=== PATIENT | male | born 1950 | race Caucasian/White ===

== ENCOUNTER 2018-06-18 08:34 | Day surgery (SDC) | payer OTHER ==
[2018-06-15 16:15] VITALS: BMI 37.3
[2018-06-18] MEDS ORDERED: LIDOCAINE HCL/PF 2% SDV 5ML VIAL ONE (09:50)
[2018-06-18] MEDS ORDERED: PROPOFOL 20 ML ONE ×2 (09:51)
[2018-06-18] MEDS ORDERED: ONDANSETRON 4 MG/2 ML VIAL IVPUSH PRN (12:01)
[2018-06-18] MEDS ORDERED: oxyCODONE HCL 5 MG TABLET PO PRN (12:01)
[2018-06-18] MEDS ORDERED: LACTATED RINGERS SOLUTION 1,000 ML IV SCH (12:15)
--- NOTE | 2018-06-18 12:30 | OP ---
Operative Note - Note: Operative Date: 06/18/18 Pre-Operative Diagnosis: bph Operation: TURP/TUVP Findings: 3+ obstructive prostate Post-Operative Diagnosis: Same as Pre-op Surgeon: Babak Mak Anesthesia: General Specimens Removed: prostatic chips Estimated Blood Loss (mls): 50 Operative Report Dictated: Yes
[2018-06-18] MEDS ORDERED: ACETAMINOPHEN INJECTION 100 ML IVPB ONE (12:43)
[2018-06-18] MEDS ORDERED: ACETAMINOPHEN 1000 MG/100 ML VIAL (NON FORMULARY) IVPB ONE ×2 (12:45→13:46)
[2018-06-18 14:46] VITALS: TEMP 97.7
[2018-06-18 17:08] VITALS: BP 140/73; PULSE 76
--- NOTE | 2018-06-18 20:44 | OP ---
DATE OF OPERATION: 06/18/2018 PREOPERATIVE DIAGNOSIS: Benign prostatic hypertrophy. POSTOPERATIVE DIAGNOSIS: Benign prostatic hypertrophy. PROCEDURE: Transurethral resection of the prostate and transurethral vaporization of the prostate utilizing bipolar system. ATTENDING: Babak Dill MD ANESTHESIA: General. DESCRIPTION OF PROCEDURE: Patient was brought into the operating room, placed in supine position on the operating room table. General anesthesia was administered. The patient was then placed in dorsal lithotomy position and prepped and draped in the usual sterile manner. Cystoscopy was performed. A 3+ obstructive prostate was noted. A 1-2+ bladder trabeculation was noted. No evidence of neoplasm within the bladder was noted. Resection of the prostate was initially performed utilizing the loop element of the [employer] system. Resection of the prostate was performed. The margins of the resection were the verumontanum distally and the bladder neck proximally. The resection was performed in a 360-degree fashion. The bulk of the prostate was resected. All prostatic chips were evacuated from the bladder utilizing the [employer] evacuator. Excellent hemostasis was obtained. Once the prostate had been adequately reduced in size, the button element of the Plasma[employer] bipolar system was utilized. Utilizing the button element, vaporization of the prostate was performed. The margins of the vaporization were the bladder neck proximally and the verumontanum distally. The depth of the vaporization was to the pseudocapsule of the prostate. This was performed in a 360-degree fashion. Excellent hemostasis was obtained. The bladder was investigated. No evidence of perforation was noted. No residual prostatic chips were noted in the bladder. Patient tolerated the procedure very well. A Mata catheter was placed with a 30-mL balloon. This was placed on light traction. The catheter was placed to straight drainage. No complications were noted. The disposition was to recovery room. Shane [id number]
--- NOTE | 2018-06-19 13:58 | PATH ---
Surgical Pathology Report Patient Name: JULIO GOODWIN [facility]. Rec. #: [id number] /Age/Gender: 1950 (Age: 67) / M Account: [id number] Location: [facility] Taken: 06/18/2018 Received: 06/18/2018 Reported: 06/19/2018 Physicians: Babak Mak Specimen(s) Received PROSTATE CHIPS Clinical History BPH Final Diagnosis PROSTATE, TRANSURETHRAL RESECTION AND VAPORIZATION OF PROSTATE: BENIGN PROSTATIC TISSUE WITH FOCAL CHRONIC INFLAMMATION, CYSTIC CHANGES, GLANDULAR AND STROMAL HYPERPLASIA. Electronically Signed Gay Mix M.D. Gross Description Received in formalin labeled "prostate tissue," is a 25 g, 13.5 x 9.5 x 0.7 cm aggregate of rawls, firm to rubbery portions of tissue, consistent with prostate chips. Machinist Brake sections are submitted in 12 cassettes. /06/18/2018 saudi/06/18/2018
== END 2018-06-18 17:09 | disposition home or self-care (01) ==
LOC: JASU-SURG 08:34
PROVIDERS: ATTEND Urology
PROC: 0VT08ZZ Resection of Prostate, Via Natural or Artificial Opening Endoscopic (ICD-10-PCS; principal; 2018-06-18 10:00)
DX: N40.1 Benign prostatic hyperplasia with lower urinary tract symptoms (principal); N13.8 Other obstructive and reflux uropathy; E11.9 Type 2 diabetes mellitus without complications; I10 Essential (primary) hypertension; E66.01 Morbid (severe) obesity due to excess calories
CPT/HCPCS: 82962; 88305-TC; 94760; J0131

== ENCOUNTER 2024-05-29 10:58 | Inpatient (IN) | payer OTHER ==
[2024-05-29 11:18] VITALS: RESP 18
[2024-05-29 13:03] LABS: EPI CELLS 1 /uL (0-25.1); HYALINE CASTS 0 /uL (0-3.1); URINE APPEARANCE CLEAR; URINE BACTERIA 1 /uL (0-1359); URINE BILIRUBIN NEGATIVE (NEGATIVE); URINE COLOR YELLOW; URINE GLUCOSE (UA) 3+ (NEGATIVE); URINE KETONE NEGATIVE (NEGATIVE); URINE LEUK ESTERASE NEGATIVE (NEGATIVE); URINE NITRITE NEGATIVE (NEGATIVE); URINE PROTEIN 1+ (NEGATIVE); URINE RBC 9 /uL (0-23.9); URINE UROBILINOGEN 0.2 mg/dL (0.2-1.0); URINE WBC 11 /uL (0-25.8)
[2024-05-29 13:06] LABS: HEMATOCRIT 35.1 % (35.4-49); HEMOGLOBIN 11.5 GM/dL (11.7-16.9); INR 0.96 (0.83-1.09); MCH 33.8 pg (25.7-33.7); MCHC 32.8 g/dl (32.0-35.9); MEAN CELL VOLUME 103.1 fl (80-96); MEAN PLT VOLUME 7.8 fl (7.5-11.1); PLATELET COUNT 178 10^3/uL (134-434); PROTHROMBIN TIME (PATIENT) 11.1 SEC (9.7-13.0); RBC 3.41 M/mm3 (4.00-5.60); RDW 16.8 % (11.9-15.9)
[2024-05-29 13:14] LABS: WHITE BLOOD COUNT 51.6 K/mm3 (4.0-10.0)
[2024-05-29 13:27] LABS: POTASSIUM 4.7 mmol/L (3.5-5.1)
[2024-05-29 13:29] LABS: ALBUMIN 4.4 g/dl (3.4-5.0); BLOOD UREA NITROGEN 28.4 mg/dL (7-18); CALCIUM 9.1 mg/dL (8.5-10.1); MAGNESIUM 2.2 mg/dL (1.8-2.4)
[2024-05-29 13:33] LABS: CREATININE 1.7 mg/dL (0.55-1.3)
[2024-05-29 13:34] LABS: BILIRUBIN,TOTAL 0.6 mg/dL (0.2-1)
[2024-05-29] MEDS: SODIUM CHLORIDE 500 ML IV STA (13:51)
[2024-05-29 14:14] LABS: ANISOCYTOSIS 1+; MACROCYTOSIS 1+
[2024-05-29] MEDS ORDERED: ACETAMINOPHEN 325 MG TABLET (FP) PO PRN (15:27)
[2024-05-29 16:15] VITALS: BMI 36.8
[2024-05-29] MEDS: INSULIN ASPART SLIDING SCALE (NOVOLOG) 1 VIAL SQ SCH (17:20)
[2024-05-29] MEDS: sitaGLIPtin PHOSPHATE 50 MG TABLET PO SCH (17:22)
[2024-05-29] MEDS: PIPERACILLIN/TAZOB 3.375 GM 3.375 GM in DEXTROSE 5%-WATER - 50 ML IVPB SCH (17:22)
[2024-05-29] MEDS: ATORVASTATIN CA 10 MG TABLET (FP) PO SCH (21:16)
[2024-05-29] MEDS: HEPARIN NA (PORCINE) 5,000 UNITS/ML 1ML VIAL SQ SCH (21:16)
[2024-05-30] MEDS: GLIMEPIRIDE 4 MG TABLET PO SCH (06:25)
[2024-05-30] MEDS ORDERED: INSULIN (LEVEMIR) 100 UNITS/ML UNITS SQ ONE (06:35)
[2024-05-30] MEDS: TAMSULOSIN HCL 0.4 MG CAP PO SCH (08:01)
[2024-05-30 08:55] LABS: HEMATOCRIT 35.9 % (35.4-49); MCH 34.4 pg (25.7-33.7); MCHC 33.4 g/dl (32.0-35.9); MEAN PLT VOLUME 7.8 fl (7.5-11.1); PLATELET COUNT 165 10^3/uL (134-434); RBC 3.48 M/mm3 (4.00-5.60); RDW 16.3 % (11.9-15.9)
[2024-05-30 09:09] LABS: WHITE BLOOD COUNT 61.4 K/mm3 (4.0-10.0)
[2024-05-30] MEDS: amLODIPine BESYLATE 10 MG TABLET (FP) PO SCH (09:13)
[2024-05-30] MEDS: LOSARTAN POTASSIUM 50 MG TABLET PO SCH (09:13)
[2024-05-30 09:19] LABS: POTASSIUM 4.6 mmol/L (3.5-5.1)
[2024-05-30 09:28] LABS: CALCIUM 9.2 mg/dL (8.5-10.1)
[2024-05-30 09:29] LABS: ALBUMIN 4.2 g/dl (3.4-5.0); BLOOD UREA NITROGEN 29.1 mg/dL (7-18)
[2024-05-30 09:32] LABS: CREATININE 1.7 mg/dL (0.55-1.3)
[2024-05-30 09:33] LABS: BILIRUBIN,TOTAL 0.6 mg/dL (0.2-1)
[2024-05-31] MEDS ORDERED: INSULIN (LEVEMIR) 100 UNITS/ML UNITS SQ ONE (07:26)
[2024-05-31 09:03] LABS: POTASSIUM 4.2 mmol/L (3.5-5.1)
[2024-05-31] MEDS: LOSARTAN POTASSIUM 50 MG TABLET PO SCH (09:03)
[2024-05-31 09:06] LABS: CALCIUM 8.8 mg/dL (8.5-10.1)
[2024-05-31 09:07] LABS: BLOOD UREA NITROGEN 29.3 mg/dL (7-18)
[2024-05-31 09:10] LABS: CREATININE 1.9 mg/dL (0.55-1.3)
[2024-05-31 09:11] LABS: BILIRUBIN,TOTAL 0.6 mg/dL (0.2-1); TOT PROT 6.8 g/dl (6.4-8.2)
[2024-05-31] MEDS: SODIUM CHLORIDE 0.45% 1,000 ML IV SCH (12:17)
[2024-05-31] MEDS ORDERED: CEFTRIAXONE 1 GM in DEXTROSE 5%-WATER - 50 ML IVPB SCH (14:30)
[2024-06-01 08:29] VITALS: BP 125/72; PULSE 72; TEMP 98.1
[2024-06-01 08:32] LABS: CALCIUM 8.7 mg/dL (8.5-10.1)
[2024-06-01 08:33] LABS: BLOOD UREA NITROGEN 27.5 mg/dL (7-18)
[2024-06-01 08:35] LABS: CREATININE 1.7 mg/dL (0.55-1.3)
[2024-06-01 08:37] LABS: BILIRUBIN,TOTAL 0.4 mg/dL (0.2-1); TOT PROT 6.9 g/dl (6.4-8.2)
== END 2024-06-01 12:47 | disposition home or self-care (01) | DRG 842 ==
LOC: JER 10:58 → JERBED 14:23 → J6S 15:38
PROVIDERS: ADMIT Family Medicine; ATTEND Family Medicine
DX: C91.10 Chronic lymphocytic leukemia of B-cell type not having achieved remission (principal); R59.0 Localized enlarged lymph nodes; D72.829 Elevated white blood cell count, unspecified; E11.9 Type 2 diabetes mellitus without complications; I10 Essential (primary) hypertension; N40.0 Benign prostatic hyperplasia without lower urinary tract symptoms; E66.9 Obesity, unspecified; Z68.36 Body mass index [BMI] 36.0-36.9, adult
CPT/HCPCS: 36415; 70490-TC; 71046-TC-FY; 71250-TC; 74176-TC; 76775-TC; 80053; 81003; 82150; 82962; 83036; 83615; 83735; 84443; 85025; 85027; 85610; 87040; 87086; 88300-TC; 93005; 93010; 99285-25; J1644

== ENCOUNTER 2025-01-01 15:39 | Inpatient (IN) | payer OTHER ==
[2025-01-01 17:52] LABS: URINE APPEARANCE CLEAR; URINE BILIRUBIN NEGATIVE (NEGATIVE); URINE COLOR YELLOW; URINE GLUCOSE (UA) NEGATIVE (NEGATIVE); URINE KETONE NEGATIVE (NEGATIVE); URINE LEUK ESTERASE NEGATIVE (NEGATIVE); URINE NITRITE NEGATIVE (NEGATIVE); URINE PROTEIN TRACE (NEGATIVE); URINE UROBILINOGEN 0.2 mg/dL (0.2-1.0)
[2025-01-01 17:54] LABS: EOS % 0.1 % (0-4.5); HEMATOCRIT 13.4 % (35.4-49); LYMPH % 97.1 % (8-40); MCH 32.6 pg (25.7-33.7); MCHC 29.2 g/dl (32.0-35.9); MEAN CELL VOLUME 111.7 fl (80-96); MEAN PLT VOLUME 8.6 fl (7.5-11.1); MONO % 1.7 % (3.8-10.2); NEUT % 1.1 % (42.8-82.8); PLATELET COUNT 91 10^3/uL (134-434); RDW 18.2 % (11.9-15.9)
[2025-01-01 18:02] LABS: HEMOGLOBIN 3.9 GM/dL (11.7-16.9); WHITE BLOOD COUNT 286.9 K/mm3 (4.0-10.0)
[2025-01-01 18:49] LABS: ANISOCYTOSIS 3+; MACROCYTOSIS 0; TARGET CELLS 1+
[2025-01-01 19:26] LABS: CHLORIDE 107 mmol/L (98-107); POTASSIUM 4.8 mmol/L (3.5-5.1); SODIUM 138 mmol/L (136-145)
[2025-01-01 19:28] LABS: ALBUMIN 3.7 g/dl (3.4-5.0); ANION GAP 13 mmol/L (4-13); CALCIUM 8.4 mg/dL (8.5-10.1); CO2 19 mmol/L (21-32); GLUCOSE,RANDOM 120 mg/dL (74-106); MAGNESIUM 3.5 mg/dL (1.8-2.4)
[2025-01-01 19:31] LABS: CREATININE 4.8 mg/dL (0.55-1.3); SGOT/AST 16 U/L (15-37); SGPT/ALT 20 U/L (13-61)
[2025-01-01 19:33] LABS: BILIRUBIN,TOTAL 0.5 mg/dL (0.2-1); TOT PROT 6.3 g/dl (6.4-8.2)
[2025-01-01 19:34] LABS: ALK PHOS 156 U/L (45-117); BLOOD UREA NITROGEN 125.2 mg/dL (7-18)
[2025-01-01] MEDS ORDERED: DOCUSATE SODIUM 100 MG CAPSULE (FP) PO PRN (21:59)
[2025-01-01] MEDS ORDERED: ACETAMINOPHEN 325 MG TABLET (FP) PO PRN (21:59)
[2025-01-01 22:27] LABS: RETICULOCYTES 0.75 % (0.5-1.5)
[2025-01-02 08:17] LABS: INR 1.11 (0.83-1.09); PROTHROMBIN TIME (PATIENT) 12.1 SEC (9.7-13.0)
[2025-01-02 08:20] LABS: ACTIVATED PTT 24.1 SECONDS (25.2-36.5); HEMATOCRIT 21.2 % (35.4-49); MCHC 32.5 g/dl (32.0-35.9); MEAN CELL VOLUME 98.5 fl (80-96); MEAN PLT VOLUME 8.6 fl (7.5-11.1); PLATELET COUNT 76 10^3/uL (134-434); RBC 2.16 M/mm3 (4.00-5.60); RDW 17.9 % (11.9-15.9)
[2025-01-02 08:38] LABS: CHLORIDE 109 mmol/L (98-107); POTASSIUM 4.6 mmol/L (3.5-5.1); SODIUM 141 mmol/L (136-145)
[2025-01-02 08:40] LABS: ANION GAP 10 mmol/L (4-13); CALCIUM 8.4 mg/dL (8.5-10.1); CO2 22 mmol/L (21-32); GLUCOSE,RANDOM 122 mg/dL (74-106); HEMOGLOBIN 6.9 GM/dL (11.7-16.9); MAGNESIUM 3.8 mg/dL (1.8-2.4); WHITE BLOOD COUNT 248.6 K/mm3 (4.0-10.0)
[2025-01-02 08:43] LABS: CREATININE 4.4 mg/dL (0.55-1.3)
[2025-01-02 08:44] LABS: PHOSPHOROUS 7.2 mg/dL (2.5-4.9)
[2025-01-02 08:47] LABS: BLOOD UREA NITROGEN 120.7 mg/dL (7-18)
[2025-01-02] MEDS: PIPERACILLIN/TAZOB 3.375 GM 50 ML IVPB SCH ×2 (09:37→22:17)
[2025-01-02] MEDS ORDERED: PIPERACILLIN/TAZOB 3.375 GM 3.375 GM/50 ML BAG IVPB ONE (09:37)
[2025-01-02 10:06] LABS: ERYTHROCYTE SEDIMENTATION RATE 90 mm/hr (0-20)
[2025-01-02] MEDS: SODIUM CHLORIDE 0.45% 1,000 ML IV SCH (18:00)
[2025-01-02] MEDS ORDERED: FENTANYL CITRATE/PF 50 MCG/ML VIAL ONE (20:53)
[2025-01-02] MEDS: POLYETHYLENE GLYCOL (HEALTHYLAX) 3350 17 GM PACKET PO SCH (21:56)
[2025-01-02 22:29] LABS: HEMATOCRIT 27.9 % (35.4-49); HEMOGLOBIN 9.5 GM/dL (11.7-16.9); MCH 31.9 pg (25.7-33.7); MCHC 33.9 g/dl (32.0-35.9); MEAN PLT VOLUME 8.2 fl (7.5-11.1); PLATELET COUNT 63 10^3/uL (134-434); RBC 2.97 M/mm3 (4.00-5.60); RDW 18.3 % (11.9-15.9)
[2025-01-02 22:48] LABS: WHITE BLOOD COUNT 227.4 K/mm3 (4.0-10.0)
[2025-01-03 07:49] LABS: HEMATOCRIT 26.5 % (35.4-49); HEMOGLOBIN 8.9 GM/dL (11.7-16.9); MCH 31.7 pg (25.7-33.7); MCHC 33.6 g/dl (32.0-35.9); MEAN CELL VOLUME 94.3 fl (80-96); MEAN PLT VOLUME 8.6 fl (7.5-11.1); PLATELET COUNT 88 10^3/uL (134-434); RBC 2.81 M/mm3 (4.00-5.60)
[2025-01-03 07:55] LABS: WHITE BLOOD COUNT 252.3 K/mm3 (4.0-10.0)
[2025-01-03 08:10] LABS: POTASSIUM 4.2 mmol/L (3.5-5.1)
[2025-01-03 08:13] LABS: ALBUMIN 3.5 g/dl (3.4-5.0); BLOOD UREA NITROGEN 99.8 mg/dL (7-18); CALCIUM 8.4 mg/dL (8.5-10.1)
[2025-01-03 08:17] LABS: CREATININE 3.6 mg/dL (0.55-1.3)
[2025-01-03 08:19] LABS: TOT PROT 6.1 g/dl (6.4-8.2)
[2025-01-03 09:38] LABS: GAMMA GLUTAMYL TRANSPEPTIDASE 16 U/L (5-85)
[2025-01-03] MEDS: ONDANSETRON 4 MG/2 ML VIAL IVPUSH ONE (19:29)
[2025-01-04 09:31] LABS: HEMATOCRIT 26.5 % (35.4-49); HEMOGLOBIN 8.8 GM/dL (11.7-16.9); MCH 31.8 pg (25.7-33.7); MCHC 33.1 g/dl (32.0-35.9); PLATELET COUNT 59 10^3/uL (134-434); RBC 2.76 M/mm3 (4.00-5.60)
[2025-01-04 09:36] LABS: WHITE BLOOD COUNT 209.9 K/mm3 (4.0-10.0)
[2025-01-04 09:47] LABS: POTASSIUM 4.1 mmol/L (3.5-5.1)
[2025-01-04 09:50] LABS: ALBUMIN 3.2 g/dl (3.4-5.0)
[2025-01-04 09:53] LABS: CREATININE 3.2 mg/dL (0.55-1.3)
[2025-01-04 09:56] LABS: BILIRUBIN,TOTAL 0.8 mg/dL (0.2-1); TOT PROT 5.7 g/dl (6.4-8.2)
[2025-01-04 10:17] VITALS: BMI 30.5
[2025-01-04] MEDS: PIPERACILLIN/TAZOB 3.375 GM 3.375 GM in DEXTROSE 5%-WATER - 50 ML IVPB SCH (11:02)
[2025-01-06 07:48] LABS: HEMATOCRIT 26.9 % (35.4-49); HEMOGLOBIN 8.8 GM/dL (11.7-16.9); MCH 31.8 pg (25.7-33.7); MCHC 32.6 g/dl (32.0-35.9); MEAN CELL VOLUME 97.3 fl (80-96); PLATELET COUNT 50 10^3/uL (134-434); RBC 2.77 M/mm3 (4.00-5.60); RDW 18.2 % (11.9-15.9)
[2025-01-06 07:50] LABS: POTASSIUM 3.9 mmol/L (3.5-5.1)
[2025-01-06 07:52] LABS: CALCIUM 7.7 mg/dL (8.5-10.1)
[2025-01-06 07:57] LABS: BILIRUBIN,TOTAL 0.6 mg/dL (0.2-1); TOT PROT 5.4 g/dl (6.4-8.2)
[2025-01-06 07:58] LABS: CREATININE 2.1 mg/dL (0.55-1.3)
[2025-01-06 08:00] LABS: BLOOD UREA NITROGEN 54.5 mg/dL (7-18)
[2025-01-06] MEDS: TAMSULOSIN HCL 0.4 MG CAP PO SCH (10:30)
[2025-01-06 11:06] LABS: ANISOCYTOSIS 1+; MACROCYTOSIS 1+
[2025-01-06 20:10] LABS: ANTIGLOMERULAR BASEMENT MEN.AB <0.2 units (0.0-0.9)
[2025-01-06] MEDS: ATORVASTATIN CA 10 MG TABLET (FP) PO SCH (21:34)
[2025-01-07 06:17] VITALS: RESP 18
[2025-01-07] MEDS: EMPAGLIFLOZIN (JARDIANCE) 10 MG TABLET PO SCH (11:12)
[2025-01-07 16:55] VITALS: BP 154/64; PULSE 74; TEMP 98.4
== END 2025-01-07 18:36 | DRG 841 ==
LOC: JER 15:39 → JERBED 18:34 → J4W 01-02 20:25
PROVIDERS: ADMIT Internal Medicine; ATTEND Family Medicine
PROC: 30233N1 Transfusion of Nonautologous Red Blood Cells into Peripheral Vein, Percutaneous Approach (ICD-10-PCS; principal; 2025-01-01)
DX: C91.10 Chronic lymphocytic leukemia of B-cell type not having achieved remission (principal); E44.0 Moderate protein-calorie malnutrition; N17.9 Acute kidney failure, unspecified; E78.5 Hyperlipidemia, unspecified; E83.42 Hypomagnesemia; N40.0 Benign prostatic hyperplasia without lower urinary tract symptoms; D64.9 Anemia, unspecified; Z68.30 Body mass index [BMI] 30.0-30.9, adult; R53.1 Weakness; D69.6 Thrombocytopenia, unspecified; I12.9 Hypertensive chronic kidney disease with stage 1 through stage 4 chronic kidney disease, or unspecified chronic kidney disease; E11.22 Type 2 diabetes mellitus with diabetic chronic kidney disease; N18.9 Chronic kidney disease, unspecified; N20.0 Calculus of kidney; R16.1 Splenomegaly, not elsewhere classified; R93.5 Abnormal findings on diagnostic imaging of other abdominal regions, including retroperitoneum; W06.XXXA Fall from bed, initial encounter; Y92.092 Bedroom in other non-institutional residence as the place of occurrence of the external cause; Y99.9 Unspecified external cause status
CPT/HCPCS: 36415; 36430; 70450-TC; 71250-TC; 74176-TC; 80048; 80053; 81003; 82272; 82308; 82607; 82728; 82746; 82962; 82977; 83010; 83516; 83540; 83550; 83615; 83735; 84100; 84439; 84443; 84484; 85025; 85027; 85045; 85384; 85610; 85651; 85730; 86038; 86140; 86225; 86850; 86880; 86900; 86901; 86922; 87086; 93005; 93010; 97116-GP; 97162-GP; 99285-25; P9038; P9058

== ENCOUNTER 2025-02-20 00:05 | Observation (INO) | payer OTHER ==
[2025-02-20 00:52] LABS: HEMATOCRIT 21.6 % (40.1-51.0); HEMOGLOBIN 6.2 g/dL (13.7-17.5); MCHC 28.7 g/dl (32.3-36.5); MEAN CELL VOLUME 106.9 fl (79.0-92.2); MEAN PLT VOLUME 9.4 fl (9.4-12.4); PLATELET COUNT 183 x10^3/uL (163-337); RDW 22.3 % (12.2-16.6)
[2025-02-20 01:06] LABS: INR 1.19 (0.83-1.09); PROTHROMBIN TIME (PATIENT) 13.1 SEC (9.7-13.0)
[2025-02-20 01:09] LABS: POTASSIUM 4.1 mmol/L (3.5-5.1)
[2025-02-20 01:11] LABS: CALCIUM 7.7 mg/dL (8.5-10.1)
[2025-02-20 01:12] LABS: ALBUMIN 2.8 g/dl (3.4-5.0); BLOOD UREA NITROGEN 28.2 mg/dL (7-18); MAGNESIUM 2.2 mg/dL (1.8-2.4)
[2025-02-20 01:15] LABS: CREATININE 1.7 mg/dL (0.55-1.3)
[2025-02-20 01:16] LABS: BILIRUBIN,TOTAL 0.3 mg/dL (0.2-1); TOT PROT 5.2 g/dl (6.4-8.2)
[2025-02-20] MEDS ORDERED: guaiFENesin 200 MG/10 ML 10 ML UNIT-DOSE CUPS PO PRN (03:45)
[2025-02-20 04:30] VITALS: BMI 26.3
[2025-02-20 08:30] LABS: HEMATOCRIT 25.8 % (40.1-51.0); HEMOGLOBIN 7.5 g/dL (13.7-17.5); MCHC 29.1 g/dl (32.3-36.5); MEAN CELL VOLUME 106.6 fl (79.0-92.2); MEAN PLT VOLUME 9.2 fl (9.4-12.4); PLATELET COUNT 184 x10^3/uL (163-337); RDW 21.7 % (12.2-16.6)
[2025-02-20 08:53] LABS: POTASSIUM 4.3 mmol/L (3.5-5.1)
[2025-02-20 09:01] LABS: BLOOD UREA NITROGEN 26.6 mg/dL (7-18)
[2025-02-20 09:04] LABS: CREATININE 1.7 mg/dL (0.55-1.3)
[2025-02-20] MEDS: TAMSULOSIN HCL 0.4 MG CAP PO SCH (09:32)
[2025-02-20] MEDS: FUROSEMIDE 40 MG/4 ML INJECTABLE VIAL IVPUSH ONE (09:34)
[2025-02-20 10:33] LABS: Reticulocyte % 1.98 % (0.51-1.81)
[2025-02-20] MEDS: BISMUTH SUBSALICYLATE 524 MG/30 ML PO ONE ×2 (10:56→20:53)
[2025-02-20] MEDS: ATORVASTATIN CA 10 MG TABLET (FP) PO SCH (21:54)
[2025-02-20] MEDS: POLYETHYLENE GLYCOL (HEALTHYLAX) 3350 17 GM PACKET PO SCH (21:54)
[2025-02-21 08:57] LABS: HEMATOCRIT 29.9 % (40.1-51.0); HEMOGLOBIN 8.9 g/dL (13.7-17.5); MCHC 29.8 g/dl (32.3-36.5); MEAN CELL VOLUME 101.7 fl (79.0-92.2); MEAN PLT VOLUME 9.5 fl (9.4-12.4); PLATELET COUNT 185 x10^3/uL (163-337); RDW 22.8 % (12.2-16.6)
[2025-02-21 08:59] LABS: Reticulocyte % 1.67 % (0.51-1.81)
[2025-02-21 09:24] LABS: POTASSIUM 4.3 mmol/L (3.5-5.1)
[2025-02-21 09:31] LABS: LDH 177 U/L (87-246)
[2025-02-21 09:40] LABS: BLOOD UREA NITROGEN 32.2 mg/dL (7-18); CALCIUM 8.2 mg/dL (8.5-10.1)
[2025-02-21 09:43] LABS: CREATININE 1.8 mg/dL (0.55-1.3)
[2025-02-21 14:06] VITALS: RESP 18
[2025-02-21 21:43] VITALS: BP 132/66; PULSE 99; TEMP 98.8
== END 2025-02-21 22:30 ==
LOC: JER 00:05 → JERBED 01:46 → J6S 03:16
PROVIDERS: ADMIT Hospitalist; ATTEND Internal Medicine
PROC: 3E033GC Introduction of Other Therapeutic Substance into Peripheral Vein, Percutaneous Approach (ICD-10-PCS; principal; 2025-02-20)
PROC: 30233N1 Transfusion of Nonautologous Red Blood Cells into Peripheral Vein, Percutaneous Approach (ICD-10-PCS; 2025-02-20)
DX: C91.10 Chronic lymphocytic leukemia of B-cell type not having achieved remission (principal); E11.9 Type 2 diabetes mellitus without complications; D64.9 Anemia, unspecified; E78.5 Hyperlipidemia, unspecified; R19.7 Diarrhea, unspecified; I10 Essential (primary) hypertension
CPT/HCPCS: 36415; 36430; 71045-TC-FY; 74018-TC-FY; 80048; 80053; 82272; 82550; 82607; 82728; 82746; 82962; 83010; 83540; 83550; 83615; 83735; 85025; 85027; 85610; 85730; 86850; 86900; 86901; 86922; 87045; 87046; 87186; 87209; 93005; 93010; 96374; 99285-25; G0378; P9058

== ENCOUNTER 2025-02-28 06:27 | Inpatient (IN) | payer OTHER ==
[2025-02-28] MEDS: LACTATED RINGERS SOLUTION 1000 ML INFUS.BAG IV ONE ×2 (06:38→07:20)
[2025-02-28] MEDS ORDERED: NOREPINEPHRINE BITARTRATE/D5W 8 MG/250 ML BAG IVPB ONE (06:47)
[2025-02-28] MEDS ORDERED: NOREPINEPHRINE BITARTRATE 4 MG/4 ML ML IV ONE ×2 (06:48→09:07)
[2025-02-28] MEDS ORDERED: VANCOMYCIN HCL 1,500 MG in DEXTROSE 5%-WATER - 500 ML IVPB ONE (07:06)
[2025-02-28 07:23] LABS: VENOUS BASE EXCESS -8.4 mmol/L (-2-2); VENOUS O2 SATURATION 83.2 % (70-80); VENOUS PH 7.307 (7.310-7.410)
[2025-02-28] MEDS ORDERED: MIDAZOLAM IN 0.9 % SOD.CHLORID 1 MG/1 ML PLAST..BAG ONE (07:25)
[2025-02-28] MEDS ORDERED: ACETAMINOPHEN INJECTION 100 ML ONE (07:25)
[2025-02-28] MEDS ORDERED: PIPERACILLIN/TAZOB 4.5 GM 4.5 GM/100 ML BAG IVPB ONE (07:26)
[2025-02-28 07:27] LABS: HEMATOCRIT 28.1 % (40.1-51.0); HEMOGLOBIN 8.3 g/dL (13.7-17.5); MCHC 29.5 g/dl (32.3-36.5); MEAN CELL VOLUME 102.2 fl (79.0-92.2); MEAN PLT VOLUME 10.4 fl (9.4-12.4); PLATELET COUNT 152 x10^3/uL (163-337); RDW 22.2 % (12.2-16.6)
[2025-02-28] MEDS: MIDAZOLAM IN 0.9 % SOD.CHLORID 100 MG/100 ML PLAST..BAG IVPB SCH (07:46)
[2025-02-28] MEDS: PIPERACILLIN/TAZOB 4.5 GM 4.5 GM in DEXTROSE 5%-WATER 100 ML IVPB ONE (07:46)
[2025-02-28 07:48] LABS: CHLORIDE 106 mmol/L (98-107); SODIUM 138 mmol/L (136-145)
[2025-02-28 07:50] LABS: CALCIUM 7.8 mg/dL (8.5-10.1)
[2025-02-28 07:51] LABS: CO2 19 mmol/L (21-32); GLUCOSE,RANDOM 266 mg/dL (74-106); MAGNESIUM 3.5 mg/dL (1.8-2.4)
[2025-02-28 07:54] LABS: CREATININE 3.8 mg/dL (0.55-1.3); SGOT/AST 128 U/L (15-37); SGPT/ALT 55 U/L (13-61)
[2025-02-28] MEDS: ACETAMINOPHEN 1000 MG/100 ML BAG IVPB ONE (07:54)
[2025-02-28 07:56] LABS: TOT PROT 5.7 g/dl (6.4-8.2)
[2025-02-28 07:58] LABS: ALBUMIN 2.1 g/dl (3.4-5.0); ALK PHOS 147 U/L (45-117); ANION GAP 13 mmol/L (4-13); BILIRUBIN,TOTAL 2.4 mg/dL (0.2-1); BLOOD UREA NITROGEN 113.3 mg/dL (7-18); POTASSIUM 7.1 mmol/L (3.5-5.1)
[2025-02-28 08:05] LABS: INR 1.45 (0.83-1.09); PROTHROMBIN TIME (PATIENT) 15.8 SEC (9.7-13.0)
[2025-02-28 08:08] LABS: ACTIVATED PTT 32.6 SECONDS (25.2-36.5)
[2025-02-28] MEDS: ROCURONIUM BROMIDE 50 MG/5 ML VIAL IVPUSH ONE (08:09)
[2025-02-28] MEDS: ETOMIDATE 20 MG/10 ML VIAL IVPUSH ONE (08:09)
[2025-02-28] MEDS ORDERED: METOPROLOL TARTRATE 5 MG/5 ML VIAL ONE (08:14)
[2025-02-28] MEDS ORDERED: ETOMIDATE 20 MG/10 ML VIAL IVPUSH ONE (08:15)
[2025-02-28] MEDS ORDERED: HEPARIN INFUSION - 25,000 UNITS/500 ML INFUS.BAG IVPB ONE (08:15)
[2025-02-28] MEDS ORDERED: HEPARIN NA (PORCINE) 5,000 UNITS/ML 1ML VIAL IVPUSH PRN ×2 (08:15)
[2025-02-28 08:19] LABS: LACTIC ACID 2.4 mmol/L (0.4-2.0)
[2025-02-28] MEDS: HEPARIN INFUSION - 25,000 UNITS/500 ML INFUS.BAG IVPB SCH (08:44)
[2025-02-28] MEDS: METOPROLOL TARTRATE 5 MG/5 ML VIAL IVPUSH ONE (08:45)
[2025-02-28] MEDS: VANCOMYCIN HCL IN 5 % DEXTROSE 1,500 MG/300 ML BAG IVPB ONE (08:46)
[2025-02-28] MEDS: NOREPINEPHRINE BITARTRATE 4,000 MCG in DEXTROSE 5%-WATER - 496 ML IV SCH (09:28)
[2025-02-28 09:46] LABS: EPI CELLS 9 /uL (0-25.1); HYALINE CASTS 0 /uL (0-3.1); URINE APPEARANCE CLOUDY; URINE BACTERIA 180 /uL (0-1359); URINE BILIRUBIN 1+ (NEGATIVE); URINE COLOR DK YELLOW; URINE GLUCOSE (UA) 2+ (NEGATIVE); URINE KETONE NEGATIVE (NEGATIVE); URINE LEUK ESTERASE NEGATIVE (NEGATIVE); URINE NITRITE NEGATIVE (NEGATIVE); URINE PROTEIN 1+ (NEGATIVE); URINE RBC 4129 /uL (0-23.9)
[2025-02-28 09:53] LABS: URINE WBC 4128.7 /uL (0-25.8)
[2025-02-28] MEDS: DEXAMETHASONE SOD PHOSPHATE 10 MG/1 ML VIAL IVPUSH SCH (10:35)
[2025-02-28 10:43] LABS: ANION GAP 14 mmol/L (4-13); BLOOD UREA NITROGEN 112.1 mg/dL (7-18); CALCIUM 7.5 mg/dL (8.5-10.1); CHLORIDE 106 mmol/L (98-107); CO2 20 mmol/L (21-32); CREATININE 3.7 mg/dL (0.55-1.3); GLUCOSE,RANDOM 312 mg/dL (74-106); POTASSIUM 6.2 mmol/L (3.5-5.1); SODIUM 139 mmol/L (136-145)
[2025-02-28] MEDS ORDERED: DEXAMETHASONE SOD PHOSPHATE 10 MG/1 ML VIAL ONE (11:02)
[2025-02-28] MEDS: REMDESIVIR 200 MG in SODIUM CHLORIDE 250 ML IVPB ONE (11:23)
[2025-02-28] MEDS ORDERED: DEXTROSE 50%-WATER 25 GM/50 ML DISP.SYRIN ONE ×2 (12:46→12:58)
[2025-02-28] MEDS ORDERED: AMIODARONE IN DEXTROSE,ISO-OSM 150 MG/100 ML BAG ONE (12:56)
[2025-02-28] MEDS ORDERED: AMIODARONE IN DEXTROSE,ISO-OSM 360 MG/200 ML BAG ONE (12:56)
[2025-02-28] MEDS ORDERED: INSULIN REGULAR HUMAN 100 UNITS/ML *VIAL ONE ×2 (12:58→13:19)
[2025-02-28] MEDS ORDERED: CALCIUM GLUCONATE 10% - 1,000 MG/10 ML VIAL ONE (12:59)
[2025-02-28] MEDS: AMIODARONE HCL 150 MG/3 ML VIAL IVPUSH ONE (13:00)
[2025-02-28] MEDS: AMIODARONE IN DEXTROSE,ISO-OSM 360 MG/200 ML BAG IV SCH ×3 (13:15→21:21)
[2025-02-28 13:17] LABS: ARTERIAL BLD GAS O2 SATURATION 99.3 % (95-98); ARTERIAL BLOOD GAS BASE EXCESS -6.6 mmol/L (-2-2); ARTERIAL BLOOD GAS PO2 202.3 mmHg (80-100); ARTERIAL BLOOD GAS pH 7.337 (7.350-7.450)
[2025-02-28 13:25] LABS: ALLENS TEST POSITIVE
[2025-02-28 13:26] LABS: VENT MODE A/C; VENT RATE 12
[2025-02-28] MEDS: MUPIROCIN 2% TOPICAL OINTMENT FOR DECOLONIZATION NS SCH (13:30)
[2025-02-28] MEDS: DEXTROSE 50%-WATER - 25 GM/50 ML VIAL IVPUSH ONE (13:35)
[2025-02-28] MEDS: CALCIUM GLUC IN NACL, ISO-OSM 1 GM/50 ML BAG IVPB ONE (13:35)
[2025-02-28] MEDS: INSULIN REGULAR HUMAN 100 UNITS/ML *VIAL IVPUSH ONE ×2 (13:35→18:19)
[2025-02-28] MEDS ORDERED: SODIUM BICARBONATE 8.4% 50 MEQ/50 ML DISP.SYRIN ONE (13:44)
[2025-02-28] MEDS: SODIUM BICARBONATE 4.2% 5 MEQ/10 ML DISP.SYRIN IVPUSH ONE (13:52)
[2025-02-28] MEDS: NOREPINEPHRINE 0.9 % NACL 8 MG/250 ML BAG IVPB SCH (14:30)
[2025-02-28] MEDS: SODIUM ZIRCONIUM CYCLOSILICATE (LOKELMA) 5 GM PACKET PO SCH (15:32)
[2025-02-28 16:09] LABS: HEMATOCRIT 23.7 % (40.1-51.0); HEMOGLOBIN 6.9 g/dL (13.7-17.5); MCHC 29.1 g/dl (32.3-36.5); MEAN CELL VOLUME 103.5 fl (79.0-92.2); MEAN PLT VOLUME 10.7 fl (9.4-12.4); PLATELET COUNT 142 x10^3/uL (163-337); RDW 22.8 % (12.2-16.6)
[2025-02-28] MEDS: PIPERACILLIN/TAZOB 2.25 GM 2.25 GM/50 ML BAG IVPB SCH ×2 (16:32→17:28)
[2025-02-28] MEDS: SODIUM CHLORIDE 1,000 ML IV SCH (16:32)
[2025-02-28 17:28] LABS: CHLORIDE 104 mmol/L (98-107); POTASSIUM 5.6 mmol/L (3.5-5.1); SODIUM 137 mmol/L (136-145)
[2025-02-28 17:29] LABS: CALCIUM 7.5 mg/dL (8.5-10.1)
[2025-02-28 17:30] LABS: ANION GAP 13 mmol/L (4-13); BLOOD UREA NITROGEN 116.9 mg/dL (7-18); CO2 21 mmol/L (21-32); GLUCOSE,RANDOM 327 mg/dL (74-106)
[2025-02-28 17:33] LABS: CREATININE 3.9 mg/dL (0.55-1.3)
[2025-02-28 18:30] LABS: Reticulocyte % 0.46 % (0.51-1.81)
[2025-02-28 19:10] LABS: BILIRUBIN,TOTAL 2.1 mg/dL (0.2-1); LDH 207 U/L (87-246)
[2025-02-28] MEDS ORDERED: FENTANYL NS IVPB 500 MCG/100 ML BAG IVPB SCH (19:45)
[2025-02-28] MEDS: PROPOFOL 1,000,000 MCG/100 ML VIAL IVPB SCH (19:46)
[2025-02-28] MEDS: PIPERACILLIN/TAZOB 2.25 GM 2.25 GM in DEXTROSE 5%-WATER - 50 ML IVPB SCH (19:52)
[2025-02-28] MEDS: FENTANYL NS IVPB 500 MCG/100 ML BAG IVPB SCH (20:48)
[2025-02-28] MEDS: CHLORHEXIDINE GLUCONATE 4% CLEANSER FOR DECOLONIZATION TP SCH (21:21)
[2025-02-28] MEDS: INSULIN ASPART SLIDING SCALE (NOVOLOG) 1 VIAL SQ SCH (23:10)
[2025-02-28 23:27] LABS: HEMATOCRIT 24.8 % (40.1-51.0); HEMOGLOBIN 7.5 g/dL (13.7-17.5); MCHC 30.2 g/dl (32.3-36.5); MEAN PLT VOLUME 10.5 fl (9.4-12.4); PLATELET COUNT 129 x10^3/uL (163-337); RDW 22.2 % (12.2-16.6)
[2025-02-28 23:38] LABS: INR 1.43 (0.83-1.09); PROTHROMBIN TIME (PATIENT) 15.6 SEC (9.7-13.0)
[2025-03-01] MEDS: PIPERACILLIN/TAZOB 2.25 GM 2.25 GM/50 ML BAG IVPB SCH (01:22)
[2025-03-01 01:26] LABS: ALBUMIN 1.7 g/dl (3.4-5.0); ALK PHOS 128 U/L (45-117); ANION GAP 13 mmol/L (4-13); BILIRUBIN,TOTAL 2.2 mg/dL (0.2-1); BLOOD UREA NITROGEN 120.1 mg/dL (7-18); CALCIUM 7.2 mg/dL (8.5-10.1); CHLORIDE 102 mmol/L (98-107); CO2 21 mmol/L (21-32); CREATININE 3.8 mg/dL (0.55-1.3); GLUCOSE,RANDOM 283 mg/dL (74-106); MAGNESIUM 3.2 mg/dL (1.8-2.4); POTASSIUM 5.6 mmol/L (3.5-5.1); SGOT/AST 89 U/L (15-37); SGPT/ALT 49 U/L (13-61); SODIUM 137 mmol/L (136-145); TOT PROT 4.8 g/dl (6.4-8.2)
[2025-03-01 02:29] LABS: PHOSPHOROUS 10.3 mg/dL (2.5-4.9)
[2025-03-01 07:17] LABS: HEMATOCRIT 24.8 % (40.1-51.0); HEMOGLOBIN 7.5 g/dL (13.7-17.5); MCHC 30.2 g/dl (32.3-36.5); MEAN CELL VOLUME 98.4 fl (79.0-92.2); MEAN PLT VOLUME 10.7 fl (9.4-12.4); PLATELET COUNT 123 x10^3/uL (163-337); RDW 22.8 % (12.2-16.6)
[2025-03-01 07:34] LABS: CHLORIDE 101 mmol/L (98-107); POTASSIUM 5.5 mmol/L (3.5-5.1); SODIUM 136 mmol/L (136-145)
[2025-03-01 07:37] LABS: ALBUMIN 1.6 g/dl (3.4-5.0); ANION GAP 15 mmol/L (4-13); CO2 20 mmol/L (21-32); GLUCOSE,RANDOM 260 mg/dL (74-106); MAGNESIUM 3.2 mg/dL (1.8-2.4)
[2025-03-01 07:41] LABS: CREATININE 3.9 mg/dL (0.55-1.3); SGOT/AST 69 U/L (15-37); SGPT/ALT 43 U/L (13-61)
[2025-03-01 07:42] LABS: ALK PHOS 126 U/L (45-117); BILIRUBIN,TOTAL 2.1 mg/dL (0.2-1); TOT PROT 4.7 g/dl (6.4-8.2)
[2025-03-01 08:08] LABS: BLOOD UREA NITROGEN 119.3 mg/dL (7-18)
[2025-03-01] MEDS: REMDESIVIR 100 MG in SODIUM CHLORIDE 250 ML IVPB SCH (10:34)
[2025-03-01 11:23] LABS: PHOSPHOROUS 10.3 mg/dL (2.5-4.9)
[2025-03-01] MEDS: SEVELAMER CARBONATE 0.8 GM POWDER PACKET NGT SCH (14:35)
[2025-03-01] MEDS: VASopressin 40 UNITS/100 ML BAG IV SCH (18:47)
[2025-03-01] MEDS: HYDROCORTISONE SOD SUCCINATE 100 MG/2 ML VIAL IVPUSH SCH (18:48)
[2025-03-01] MEDS: CALCIUM GLUCONATE 10% - 1,000 MG/10 ML VIAL IVPB ONE (23:19)
[2025-03-02] MEDS: AMIODARONE IN DEXTROSE,ISO-OSM 360 MG/200 ML BAG IV SCH (04:02)
[2025-03-02 06:45] LABS: HEMATOCRIT 25.3 % (40.1-51.0); HEMOGLOBIN 7.5 g/dL (13.7-17.5); MCHC 29.6 g/dl (32.3-36.5); MEAN CELL VOLUME 101.2 fl (79.0-92.2); PLATELET COUNT 99 x10^3/uL (163-337)
[2025-03-02 07:13] LABS: INR 1.36 (0.83-1.09)
[2025-03-02 07:16] LABS: ACTIVATED PTT 65.7 SECONDS (25.2-36.5)
[2025-03-02 08:20] LABS: CHLORIDE 101 mmol/L (98-107); POTASSIUM 6.4 mmol/L (3.5-5.1); SODIUM 136 mmol/L (136-145)
[2025-03-02 08:24] LABS: ALBUMIN 1.6 g/dl (3.4-5.0); ANION GAP 19 mmol/L (4-13); BLOOD UREA NITROGEN 132.9 mg/dL (7-18); CALCIUM 6.9 mg/dL (8.5-10.1); CO2 17 mmol/L (21-32); GLUCOSE,RANDOM 282 mg/dL (74-106); MAGNESIUM 3.2 mg/dL (1.8-2.4)
[2025-03-02 08:37] LABS: ALK PHOS 119 U/L (45-117); BILIRUBIN,TOTAL 2.2 mg/dL (0.2-1); CREATININE 4.1 mg/dL (0.55-1.3); SGOT/AST 37 U/L (15-37); SGPT/ALT 31 U/L (13-61); TOT PROT 4.9 g/dl (6.4-8.2)
[2025-03-02 08:50] LABS: PHOSPHOROUS 13.1 mg/dL (2.5-4.9)
[2025-03-02] MEDS ORDERED: DEXTROSE 50%-WATER 25 GM/50 ML DISP.SYRIN ONE (09:19)
[2025-03-02] MEDS: CALCIUM GLUC IN NACL, ISO-OSM 1 GM/50 ML BAG IVPB ONE ×2 (09:20→23:36)
[2025-03-02] MEDS: SODIUM ZIRCONIUM CYCLOSILICATE (LOKELMA) 5 GM PACKET PO ONE (09:20)
[2025-03-02] MEDS: INSULIN REGULAR HUMAN 100 UNITS/ML *VIAL IVPUSH ONE ×2 (09:31→23:34)
[2025-03-02] MEDS: DEXTROSE 50%-WATER - 25 GM/50 ML VIAL IVPUSH ONE (09:34)
[2025-03-02] MEDS: SEVELAMER CARBONATE 0.8 GM POWDER PACKET NGT SCH (09:35)
[2025-03-02] MEDS: SEVELAMER CARBONATE 2.4 GM POWDER PACKET PO SCH (11:57)
[2025-03-02 15:01] LABS: ARTERIAL BLD GAS O2 SATURATION 96.4 % (95-98); ARTERIAL BLOOD GAS BASE EXCESS -11.4 mmol/L (-2-2); ARTERIAL BLOOD GAS PO2 101.9 mmHg (80-100); ARTERIAL BLOOD GAS pH 7.204 (7.350-7.450)
[2025-03-02 15:05] LABS: VENT RATE 12
[2025-03-02] MEDS: SODIUM BICARBONATE 8.4% - 50 MEQ in SODIUM CHLORIDE 0.45% 1,000 ML IV SCH (15:07)
[2025-03-02] MEDS ORDERED: VASopressin 20 UNITS/ML VIAL IV ONE (16:02)
[2025-03-02 16:26] LABS: POTASSIUM PLASMA 6.1 mmol/L (3.5-5.1)
[2025-03-02] MEDS: AMINO ACIDS/PROTEIN HYDROLYS 30 ML LIQUID.PKT NGT SCH (17:56)
[2025-03-02 20:42] LABS: ARTERIAL BLD GAS O2 SATURATION 96.9 % (95-98); ARTERIAL BLOOD GAS PO2 104.9 mmHg (80-100); ARTERIAL BLOOD GAS pH 7.236 (7.350-7.450)
[2025-03-02 20:44] LABS: VENT MODE A/C; VENT RATE 12
[2025-03-02 21:51] LABS: HEMOGLOBIN 7.2 g/dL (13.7-17.5); MEAN CELL VOLUME 98.4 fl (79.0-92.2); MEAN PLT VOLUME 11.4 fl (9.4-12.4); PLATELET COUNT 84 x10^3/uL (163-337); RDW 23.9 % (12.2-16.6)
[2025-03-02 22:10] LABS: ANION GAP 15 mmol/L (4-13); BLOOD UREA NITROGEN 129.8 mg/dL (7-18); CALCIUM 6.4 mg/dL (8.5-10.1); CHLORIDE 101 mmol/L (98-107); CO2 17 mmol/L (21-32); CREATININE 4.2 mg/dL (0.55-1.3); GLUCOSE,RANDOM 261 mg/dL (74-106); POTASSIUM 6.1 mmol/L (3.5-5.1); SODIUM 133 mmol/L (136-145)
[2025-03-02] MEDS ORDERED: INSULIN REGULAR HUMAN 100 UNITS/ML *VIAL ONE (23:25)
[2025-03-02] MEDS: DEXTROSE 50%-WATER 25 GM/50 ML DISP.SYRIN IVPUSH ONE (23:26)
[2025-03-02] MEDS: SODIUM BICARBONATE 8.4% 50 MEQ/50 ML DISP.SYRIN IVPUSH ONE (23:26)
[2025-03-03 06:29] LABS: HEMATOCRIT 23.2 % (40.1-51.0); HEMOGLOBIN 7.1 g/dL (13.7-17.5); MCHC 30.6 g/dl (32.3-36.5); MEAN CELL VOLUME 97.1 fl (79.0-92.2); MEAN PLT VOLUME 11.7 fl (9.4-12.4); PLATELET COUNT 77 x10^3/uL (163-337); RDW 22.7 % (12.2-16.6)
[2025-03-03 06:40] LABS: INR 1.39 (0.83-1.09); PROTHROMBIN TIME (PATIENT) 15.1 SEC (9.7-13.0)
[2025-03-03 07:45] LABS: PHOSPHOROUS 13.4 mg/dL (2.5-4.9)
[2025-03-03 09:34] LABS: ALBUMIN 1.6 g/dl (3.4-5.0); ANION GAP 20 mmol/L (4-13); BLOOD UREA NITROGEN 134.4 mg/dL (7-18); CALCIUM 6.1 mg/dL (8.5-10.1); CHLORIDE 99 mmol/L (98-107); CO2 16 mmol/L (21-32); CREATININE 4.4 mg/dL (0.55-1.3); GLUCOSE,RANDOM 290 mg/dL (74-106); POTASSIUM 6.1 mmol/L (3.5-5.1); SGOT/AST 27 U/L (15-37); SGPT/ALT 20 U/L (13-61); SODIUM 134 mmol/L (136-145)
[2025-03-03 09:36] LABS: BILIRUBIN,TOTAL 1.8 mg/dL (0.2-1)
[2025-03-03 09:37] LABS: ALK PHOS 102 U/L (45-117)
[2025-03-03 11:04] LABS: LDH 303 U/L (87-246)
[2025-03-03 11:08] LABS: URIC ACID 16.8 mg/dL (2.6-7.2)
[2025-03-03] MEDS ORDERED: SODIUM CHLORIDE 250 ML IV PRN (13:05)
[2025-03-03] MEDS: HYDROCORTISONE SOD SUCCINATE 100 MG/2 ML VIAL IVPUSH SCH (13:10)
[2025-03-03] MEDS ORDERED: INSULIN ASPART SLIDING SCALE (NOVOLOG) 1 VIAL SQ ONE (17:49)
[2025-03-03 18:23] LABS: HCV DIAGNOSTIC IN-HOUSE W/RFLX NON-REACTIVE (NONREACTIVE)
[2025-03-04 06:48] LABS: HEMATOCRIT 19.8 % (40.1-51.0); HEMOGLOBIN 6.2 g/dL (13.7-17.5); MCHC 31.3 g/dl (32.3-36.5); MEAN CELL VOLUME 95.2 fl (79.0-92.2); MEAN PLT VOLUME 12.5 fl (9.4-12.4); PLATELET COUNT 56 x10^3/uL (163-337); RDW 22.6 % (12.2-16.6)
[2025-03-04 07:26] LABS: CHLORIDE 97 mmol/L (98-107); SODIUM 133 mmol/L (136-145)
[2025-03-04 08:53] LABS: ALBUMIN 1.4 g/dl (3.4-5.0); ANION GAP 17 mmol/L (4-13); CO2 19 mmol/L (21-32); GLUCOSE,RANDOM 358 mg/dL (74-106)
[2025-03-04 08:54] LABS: BLOOD UREA NITROGEN 114.2 mg/dL (7-18); CALCIUM 5.5 mg/dL (8.5-10.1); MAGNESIUM 2.6 mg/dL (1.8-2.4)
[2025-03-04 08:56] LABS: CREATININE 3.8 mg/dL (0.55-1.3); SGOT/AST 20 U/L (15-37)
[2025-03-04 08:57] LABS: SGPT/ALT 14 U/L (13-61)
[2025-03-04 08:58] LABS: BILIRUBIN,TOTAL 1.3 mg/dL (0.2-1); TOT PROT 4.6 g/dl (6.4-8.2)
[2025-03-04 08:59] LABS: ALK PHOS 91 U/L (45-117)
[2025-03-04 09:29] LABS: LDH 291 U/L (87-246); PHOSPHOROUS 11.3 mg/dL (2.5-4.9); URIC ACID 14.8 mg/dL (2.6-7.2)
[2025-03-04] MEDS ORDERED: SODIUM CHLORIDE 250 ML IV PRN (10:12)
[2025-03-04] MEDS: PANTOPRAZOLE SODIUM 40 MG VIAL IVPUSH SCH (11:28)
[2025-03-04 11:51] LABS: HEMOGLOBIN 6.7 g/dL (13.7-17.5); MCHC 31.9 g/dl (32.3-36.5); MEAN CELL VOLUME 94.2 fl (79.0-92.2); MEAN PLT VOLUME 12.8 fl (9.4-12.4); PLATELET COUNT 61 x10^3/uL (163-337); RDW 22.4 % (12.2-16.6)
[2025-03-04 12:56] VITALS: BMI 28.1
[2025-03-04 20:50] LABS: HEMATOCRIT 19.1 % (40.1-51.0); HEMOGLOBIN 6.4 g/dL (13.7-17.5); MCHC 33.5 g/dl (32.3-36.5); MEAN CELL VOLUME 91.8 fl (79.0-92.2); MEAN PLT VOLUME 11.9 fl (9.4-12.4); PLATELET COUNT 38 x10^3/uL (163-337); RDW 20.4 % (12.2-16.6)
[2025-03-04 21:00] LABS: ARTERIAL BLD GAS O2 SATURATION 96.6 % (95-98); ARTERIAL BLOOD GAS BASE EXCESS -1.6 mmol/L (-2-2); ARTERIAL BLOOD GAS PO2 86.2 mmHg (80-100)
[2025-03-04] MEDS: CALCIUM GLUCONATE 10% - 1,000 MG/10 ML VIAL IVPB ONE (22:39)
[2025-03-05] MEDS: AMIODARONE IN DEXTROSE,ISO-OSM 360 MG/200 ML BAG IV SCH (01:05)
[2025-03-05 06:01] LABS: ARTERIAL BLD GAS O2 SATURATION 97.4 % (95-98); ARTERIAL BLOOD GAS BASE EXCESS -1.1 mmol/L (-2-2); ARTERIAL BLOOD GAS PO2 94.2 mmHg (80-100)
[2025-03-05 06:24] LABS: MAGNESIUM 2.1 mg/dL (1.8-2.4)
[2025-03-05 06:27] LABS: PHOSPHOROUS 8.5 mg/dL (2.5-4.9)
[2025-03-05 06:43] LABS: HEMATOCRIT 21.1 % (40.1-51.0); MCHC 33.2 g/dl (32.3-36.5); PLATELET COUNT 42 x10^3/uL (163-337); RDW 20.5 % (12.2-16.6)
[2025-03-05 06:48] LABS: HEMATOCRIT 20.9 % (40.1-51.0); HEMOGLOBIN 7.1 g/dL (13.7-17.5); MEAN CELL VOLUME 88.6 fl (79.0-92.2); MEAN PLT VOLUME 12.6 fl (9.4-12.4); PLATELET COUNT 45 x10^3/uL (163-337); RDW 20.6 % (12.2-16.6)
[2025-03-05] MEDS ORDERED: HYDROCORTISONE SOD SUCCINATE 100 MG/2 ML VIAL IVPUSH SCH (12:15)
[2025-03-05] MEDS ORDERED: hydrALAZINE HCL 20 MG/ML VIAL ONE (12:28)
[2025-03-05] MEDS ORDERED: AMIODARONE HCL 200 MG TABLET PO SCH (12:30)
[2025-03-05] MEDS: hydrALAZINE HCL 20 MG/ML VIAL IVPUSH ONE (12:53)
[2025-03-05] MEDS: AMIODARONE HCL 200 MG TABLET NGT SCH (12:53)
[2025-03-05] MEDS: hydrALAZINE HCL 20 MG/ML VIAL IVPUSH PRN (13:18)
[2025-03-05 13:33] LABS: HEMATOCRIT 24.1 % (40.1-51.0); HEMOGLOBIN 8.3 g/dL (13.7-17.5); MCHC 34.4 g/dl (32.3-36.5); MEAN PLT VOLUME 12.2 fl (9.4-12.4); PLATELET COUNT 69 x10^3/uL (163-337); RDW 21.2 % (12.2-16.6)
[2025-03-05] MEDS: LABETALOL HCL 20 MG/4 ML VIAL IVPUSH ONE (13:33)
[2025-03-05 14:24] LABS: CHLORIDE 97 mmol/L (98-107); POTASSIUM 3.2 mmol/L (3.5-5.1); SODIUM 136 mmol/L (136-145)
[2025-03-05 14:27] LABS: ALBUMIN 1.5 g/dl (3.4-5.0); ANION GAP 15 mmol/L (4-13); BLOOD UREA NITROGEN 94.4 mg/dL (7-18); CO2 24 mmol/L (21-32); GLUCOSE,RANDOM 265 mg/dL (74-106)
[2025-03-05 14:30] LABS: CREATININE 3.3 mg/dL (0.55-1.3); SGOT/AST 18 U/L (15-37); SGPT/ALT 13 U/L (13-61)
[2025-03-05 14:31] LABS: BILIRUBIN,TOTAL 1.1 mg/dL (0.2-1); CALCIUM 5.7 mg/dL (8.5-10.1)
[2025-03-05 14:33] LABS: ALK PHOS 106 U/L (45-117)
[2025-03-05] MEDS: DEXMEDETOMIDINE PREMIX 400 MCG/100 ML BAG IVPB SCH (18:16)
[2025-03-05] MEDS: HYDROCORTISONE SOD SUCCINATE 100 MG/2 ML VIAL IVPUSH SCH (20:24)
[2025-03-06 06:47] LABS: HEMATOCRIT 24.7 % (40.1-51.0); HEMOGLOBIN 8.1 g/dL (13.7-17.5); MCHC 32.8 g/dl (32.3-36.5); MEAN CELL VOLUME 90.5 fl (79.0-92.2); MEAN PLT VOLUME 11.8 fl (9.4-12.4); PLATELET COUNT 82 x10^3/uL (163-337); RDW 22.5 % (12.2-16.6)
[2025-03-06 07:04] LABS: CHLORIDE 97 mmol/L (98-107); POTASSIUM 3.6 mmol/L (3.5-5.1); SODIUM 135 mmol/L (136-145)
[2025-03-06 07:08] LABS: ALBUMIN 1.3 g/dl (3.4-5.0); ANION GAP 15 mmol/L (4-13); CO2 24 mmol/L (21-32); GLUCOSE,RANDOM 284 mg/dL (74-106); MAGNESIUM 2.3 mg/dL (1.8-2.4)
[2025-03-06 07:11] LABS: CREATININE 3.8 mg/dL (0.55-1.3); SGPT/ALT 13 U/L (13-61)
[2025-03-06 07:12] LABS: SGOT/AST 22 U/L (15-37)
[2025-03-06 07:13] LABS: BILIRUBIN,TOTAL 0.8 mg/dL (0.2-1); TOT PROT 4.6 g/dl (6.4-8.2)
[2025-03-06 07:14] LABS: ALK PHOS 113 U/L (45-117)
[2025-03-06 07:41] LABS: BLOOD UREA NITROGEN 106.1 mg/dL (7-18)
[2025-03-06 07:42] LABS: CALCIUM 5.7 mg/dL (8.5-10.1)
[2025-03-06 08:07] LABS: PHOSPHOROUS 9.5 mg/dL (2.5-4.9)
[2025-03-06] MEDS ORDERED: SODIUM CHLORIDE 250 ML IV PRN (08:56)
[2025-03-06] MEDS: FENTANYL NS IVPB 500 MCG/100 ML BAG IVPB SCH (12:10)
[2025-03-06] MEDS: AMIODARONE IN DEXTROSE,ISO-OSM 150 MG/100 ML BAG IVPB ONE (21:42)
[2025-03-07] MEDS: AMIODARONE IN DEXTROSE,ISO-OSM 360 MG/200 ML BAG IV SCH (04:00)
[2025-03-07 06:49] LABS: HEMATOCRIT 27.1 % (40.1-51.0); HEMOGLOBIN 8.7 g/dL (13.7-17.5); MCHC 32.1 g/dl (32.3-36.5); MEAN CELL VOLUME 92.5 fl (79.0-92.2); MEAN PLT VOLUME 12.6 fl (9.4-12.4); PLATELET COUNT 88 x10^3/uL (163-337); RDW 23.2 % (12.2-16.6)
[2025-03-07 06:51] LABS: CHLORIDE 99 mmol/L (98-107); POTASSIUM 3.9 mmol/L (3.5-5.1); SODIUM 136 mmol/L (136-145)
[2025-03-07 07:05] LABS: ALBUMIN 1.2 g/dl (3.4-5.0); ANION GAP 13 mmol/L (4-13); BLOOD UREA NITROGEN 85.6 mg/dL (7-18); CO2 24 mmol/L (21-32); GLUCOSE,RANDOM 263 mg/dL (74-106); MAGNESIUM 2.2 mg/dL (1.8-2.4)
[2025-03-07 07:07] LABS: SGPT/ALT 12 U/L (13-61)
[2025-03-07 07:08] LABS: CREATININE 3.4 mg/dL (0.55-1.3); PHOSPHOROUS 7.8 mg/dL (2.5-4.9); SGOT/AST 20 U/L (15-37)
[2025-03-07 07:09] LABS: TOT PROT 4.6 g/dl (6.4-8.2)
[2025-03-07 07:10] LABS: ALK PHOS 106 U/L (45-117)
[2025-03-07 07:52] LABS: CALCIUM 6.1 mg/dL (8.5-10.1)
[2025-03-07] MEDS: ACETAMINOPHEN 1000 MG/100 ML BAG IVPB ONE ×2 (08:11→18:54)
[2025-03-07] MEDS: AMIODARONE HCL 200 MG TABLET PO ONE (11:04)
[2025-03-07] MEDS: AMIODARONE HCL 200 MG TABLET PO SCH (13:24)
[2025-03-07] MEDS: LEVALBUTEROL HCL 0.63 MG/3 ML VIAL.NEB. IH SCH (14:07)
[2025-03-07] MEDS: IPRATROPIUM BR 0.02% 0.5 MG/2.5 ML VIAL.NEB. NEB SCH (14:07)
[2025-03-07] MEDS: MIDODRINE HCL 5 MG TABLET PO SCH (15:08)
[2025-03-07] MEDS ORDERED: SODIUM CHLORIDE 250 ML IV PRN (16:43)
[2025-03-07 21:13] LABS: CHLORIDE 98 mmol/L (98-107); POTASSIUM 4.2 mmol/L (3.5-5.1); SODIUM 137 mmol/L (136-145)
[2025-03-07 21:15] LABS: ANION GAP 14 mmol/L (4-13); BLOOD UREA NITROGEN 101.3 mg/dL (7-18); CALCIUM 5.8 mg/dL (8.5-10.1); CO2 24 mmol/L (21-32); GLUCOSE,RANDOM 242 mg/dL (74-106)
[2025-03-07 21:18] LABS: CREATININE 3.8 mg/dL (0.55-1.3)
[2025-03-07] MEDS: INSULIN GLARGINE (LANTUS) 100 UNITS/ML UNITS SQ SCH (21:20)
[2025-03-07] MEDS: CALCIUM GLUCONATE 10% - 1,000 MG/10 ML VIAL IVPB ONE (21:54)
[2025-03-07] MEDS: CALCIUM GLUCONATE 10% - 1,000 MG/10 ML VIAL IVPUSH ONE (23:39)
[2025-03-08] MEDS: VASopressin 40 UNITS/100 ML BAG IV SCH (00:27)
[2025-03-08 06:56] LABS: CHLORIDE 98 mmol/L (98-107); POTASSIUM 4.3 mmol/L (3.5-5.1); SODIUM 136 mmol/L (136-145)
[2025-03-08 06:59] LABS: HEMATOCRIT 25.5 % (40.1-51.0); MCHC 31.4 g/dl (32.3-36.5); MEAN CELL VOLUME 95.1 fl (79.0-92.2); MEAN PLT VOLUME 12.9 fl (9.4-12.4); PLATELET COUNT 114 x10^3/uL (163-337); RDW 23.2 % (12.2-16.6)
[2025-03-08 06:59] LABS: ALBUMIN 1.1 g/dl (3.4-5.0); ANION GAP 15 mmol/L (4-13); BLOOD UREA NITROGEN 102.1 mg/dL (7-18); CO2 23 mmol/L (21-32); GLUCOSE,RANDOM 243 mg/dL (74-106); MAGNESIUM 2.4 mg/dL (1.8-2.4)
[2025-03-08 07:01] LABS: URIC ACID 9.4 mg/dL (2.6-7.2)
[2025-03-08 07:02] LABS: CREATININE 4.1 mg/dL (0.55-1.3); SGOT/AST 17 U/L (15-37); SGPT/ALT 8 U/L (13-61)
[2025-03-08 07:03] LABS: BILIRUBIN,TOTAL 1.1 mg/dL (0.2-1); TOT PROT 4.4 g/dl (6.4-8.2)
[2025-03-08 07:05] LABS: ALK PHOS 95 U/L (45-117)
[2025-03-08 07:06] LABS: LDH 249 U/L (87-246)
[2025-03-08 07:16] LABS: PHOSPHOROUS 8.6 mg/dL (2.5-4.9)
[2025-03-08] MEDS: EPOETIN ALFA-EPBX 10,000 UNIT/ML VIAL SQ ONE (18:59)
[2025-03-08] MEDS: CALCIUM GLUCONATE 10% - 1,000 MG/10 ML VIAL IVPB ONE (20:04)
[2025-03-09] MEDS: AMIODARONE IN DEXTROSE,ISO-OSM 360 MG/200 ML BAG IV SCH (00:03)
[2025-03-09 07:03] LABS: HEMATOCRIT 26.5 % (40.1-51.0); HEMOGLOBIN 8.1 g/dL (13.7-17.5); MCHC 30.6 g/dl (32.3-36.5); MEAN CELL VOLUME 95.3 fl (79.0-92.2); MEAN PLT VOLUME 11.8 fl (9.4-12.4); PLATELET COUNT 106 x10^3/uL (163-337); RDW 23.3 % (12.2-16.6)
[2025-03-09 07:04] LABS: HEMATOCRIT 26.8 % (40.1-51.0); HEMOGLOBIN 8.1 g/dL (13.7-17.5); MCHC 30.2 g/dl (32.3-36.5); MEAN CELL VOLUME 95.7 fl (79.0-92.2); MEAN PLT VOLUME 12.8 fl (9.4-12.4); PLATELET COUNT 109 x10^3/uL (163-337); RDW 23.2 % (12.2-16.6)
[2025-03-09 07:22] LABS: CHLORIDE 98 mmol/L (98-107); POTASSIUM 4.4 mmol/L (3.5-5.1); SODIUM 135 mmol/L (136-145)
[2025-03-09 07:29] LABS: ALBUMIN 1.1 g/dl (3.4-5.0); ANION GAP 15 mmol/L (4-13); BLOOD UREA NITROGEN 102.2 mg/dL (7-18); CO2 22 mmol/L (21-32); GLUCOSE,RANDOM 219 mg/dL (74-106); MAGNESIUM 2.3 mg/dL (1.8-2.4)
[2025-03-09 07:32] LABS: CREATININE 3.9 mg/dL (0.55-1.3); SGOT/AST 15 U/L (15-37); SGPT/ALT 8 U/L (13-61)
[2025-03-09 07:33] LABS: TOT PROT 4.5 g/dl (6.4-8.2)
[2025-03-09 07:35] LABS: ALK PHOS 87 U/L (45-117)
[2025-03-09 08:03] LABS: PHOSPHOROUS 8.4 mg/dL (2.5-4.9)
[2025-03-09 08:04] LABS: CALCIUM 6.3 mg/dL (8.5-10.1)
[2025-03-10 06:52] LABS: HEMATOCRIT 22.2 % (40.1-51.0); HEMOGLOBIN 6.8 g/dL (13.7-17.5); MCHC 30.6 g/dl (32.3-36.5); MEAN CELL VOLUME 95.7 fl (79.0-92.2); MEAN PLT VOLUME 12.5 fl (9.4-12.4); PLATELET COUNT 86 x10^3/uL (163-337); RDW 22.9 % (12.2-16.6)
[2025-03-10 07:12] LABS: CHLORIDE 96 mmol/L (98-107); POTASSIUM 4.5 mmol/L (3.5-5.1); SODIUM 134 mmol/L (136-145)
[2025-03-10 07:16] LABS: ANION GAP 16 mmol/L (4-13); CO2 22 mmol/L (21-32); GLUCOSE,RANDOM 203 mg/dL (74-106); MAGNESIUM 2.5 mg/dL (1.8-2.4)
[2025-03-10 07:19] LABS: CREATININE 4.4 mg/dL (0.55-1.3); SGOT/AST 16 U/L (15-37); SGPT/ALT 9 U/L (13-61)
[2025-03-10 07:20] LABS: BILIRUBIN,TOTAL 0.8 mg/dL (0.2-1); TOT PROT 4.5 g/dl (6.4-8.2)
[2025-03-10 07:21] LABS: ALK PHOS 94 U/L (45-117)
[2025-03-10 07:52] LABS: BLOOD UREA NITROGEN 110.9 mg/dL (7-18); CALCIUM 5.9 mg/dL (8.5-10.1); PHOSPHOROUS 8.7 mg/dL (2.5-4.9)
[2025-03-10] MEDS ORDERED: SODIUM CHLORIDE 250 ML IV PRN (14:09)
[2025-03-10] MEDS: MIDODRINE HCL 5 MG TABLET PO SCH (14:37)
[2025-03-10] MEDS ORDERED: AMIODARONE HCL 200 MG TABLET PO SCH (15:42)
[2025-03-10] MEDS: AMIODARONE HCL 200 MG TABLET PO ONE (17:28)
[2025-03-10] MEDS ORDERED: AMIODARONE HCL INJECTION 150 MG in DEXTROSE 5%-WATER - 100 ML IVPB ONE (18:29)
[2025-03-10] MEDS ORDERED: AMIODARONE IN DEXTROSE,ISO-OSM 360 MG/200 ML BAG IV SCH (18:30)
[2025-03-10 18:48] LABS: HEMATOCRIT 26.7 % (40.1-51.0); HEMOGLOBIN 8.3 g/dL (13.7-17.5); MCHC 31.1 g/dl (32.3-36.5); MEAN CELL VOLUME 93.4 fl (79.0-92.2); MEAN PLT VOLUME 12.5 fl (9.4-12.4); PLATELET COUNT 85 x10^3/uL (163-337); RDW 22.5 % (12.2-16.6)
[2025-03-10] MEDS: AMIODARONE IN DEXTROSE,ISO-OSM 360 MG/200 ML BAG IV SCH (19:46)
[2025-03-11 06:47] LABS: HEMATOCRIT 25.8 % (40.1-51.0); HEMOGLOBIN 8.1 g/dL (13.7-17.5); MCHC 31.4 g/dl (32.3-36.5); MEAN CELL VOLUME 92.1 fl (79.0-92.2); PLATELET COUNT 87 x10^3/uL (163-337); RDW 22.7 % (12.2-16.6)
[2025-03-11 07:11] LABS: CHLORIDE 96 mmol/L (98-107); SODIUM 134 mmol/L (136-145)
[2025-03-11 07:17] LABS: ANION GAP 19 mmol/L (4-13); CO2 19 mmol/L (21-32); GLUCOSE,RANDOM 162 mg/dL (74-106)
[2025-03-11 07:19] LABS: SGPT/ALT 8 U/L (13-61)
[2025-03-11 07:20] LABS: CREATININE 4.7 mg/dL (0.55-1.3)
[2025-03-11 07:21] LABS: SGOT/AST 20 U/L (15-37); TOT PROT 4.6 g/dl (6.4-8.2)
[2025-03-11 07:23] LABS: ALK PHOS 102 U/L (45-117)
[2025-03-11 07:27] LABS: BLOOD UREA NITROGEN 117.6 mg/dL (7-18); CALCIUM 5.9 mg/dL (8.5-10.1)
[2025-03-11 10:06] VITALS: RESP 23
[2025-03-11 12:02] VITALS: BP 124/53; PULSE 94; TEMP 101.5
[2025-03-11] MEDS ORDERED: EPOETIN ALFA-EPBX 10,000 UNIT/ML VIAL SQ ONE (14:09)
[2025-03-11] MEDS ORDERED: ALBUMIN HUMAN 25% 12.5 GM/50 ML VIAL IV SCH (14:15)
[2025-03-11] MEDS: MORPHINE SULFATE/0.9% NACL/PF 100 MG/100 ML BAG IVPB SCH (14:20)
[2025-03-11] MEDS: LORazepam 2 MG/ML SDV VIAL IVPUSH PRN (14:20)
[2025-03-11] MEDS: SCOPOLAMINE HYDROBROMIDE 1 PATCH PATCH.TD72 TD SCH (14:20)
[2025-03-11] MEDS ORDERED: PIPERACILLIN/TAZOB 2.25 GM 2.25 GM/50 ML BAG IVPB SCH (18:00)
[2025-03-16] MEDS ORDERED: AMIODARONE HCL 200 MG TABLET PO SCH (10:00)
== END 2025-03-11 15:57 | disposition expired | DRG 870 ==
LOC: JER 06:27 → JERBED 08:05 → JICU 12:26
PROVIDERS: ADMIT Internal Medicine; ATTEND Internal Medicine
PROC: 5A1955Z Respiratory Ventilation, Greater than 96 Consecutive Hours (ICD-10-PCS; principal; 2025-02-28)
PROC: 0BH17EZ Insertion of Endotracheal Airway into Trachea, Via Natural or Artificial Opening (ICD-10-PCS; 2025-02-28)
PROC: XW033E5 Introduction of Remdesivir Anti-infective into Peripheral Vein, Percutaneous Approach, New Technology Group 5 (ICD-10-PCS; 2025-02-28)
PROC: 05HM33Z Insertion of Infusion Device into Right Internal Jugular Vein, Percutaneous Approach (ICD-10-PCS; 2025-02-28)
PROC: 4A133J1 Monitoring of Arterial Pulse, Peripheral, Percutaneous Approach (ICD-10-PCS; 2025-03-02)
PROC: 4A133B1 Monitoring of Arterial Pressure, Peripheral, Percutaneous Approach (ICD-10-PCS; 2025-03-02)
PROC: 05HN33Z Insertion of Infusion Device into Left Internal Jugular Vein, Percutaneous Approach (ICD-10-PCS; 2025-03-03)
PROC: B544ZZA Ultrasonography of Left Jugular Veins, Guidance (ICD-10-PCS; 2025-03-03)
PROC: 5A1D70Z Performance of Urinary Filtration, Intermittent, Less than 6 Hours Per Day (ICD-10-PCS; 2025-03-04)
PROC: 30233N1 Transfusion of Nonautologous Red Blood Cells into Peripheral Vein, Percutaneous Approach (ICD-10-PCS; 2025-03-04)
PROC: 30233R1 Transfusion of Nonautologous Platelets into Peripheral Vein, Percutaneous Approach (ICD-10-PCS; 2025-03-05)
PROC: 06HY33Z Insertion of Infusion Device into Lower Vein, Percutaneous Approach (ICD-10-PCS; 2025-03-06)
PROC: 05HN33Z Insertion of Infusion Device into Left Internal Jugular Vein, Percutaneous Approach (ICD-10-PCS; 2025-03-07)
PROC: B544ZZA Ultrasonography of Left Jugular Veins, Guidance (ICD-10-PCS; 2025-03-07)
DX: A41.9 Sepsis, unspecified organism (principal); J18.9 Pneumonia, unspecified organism; R65.21 Severe sepsis with septic shock; U07.1 COVID-19; J96.01 Acute respiratory failure with hypoxia; I82.431 Acute embolism and thrombosis of right popliteal vein; C91.10 Chronic lymphocytic leukemia of B-cell type not having achieved remission; N18.4 Chronic kidney disease, stage 4 (severe); I24.89 Other forms of acute ischemic heart disease; E87.20 Acidosis, unspecified; N17.9 Acute kidney failure, unspecified; I12.9 Hypertensive chronic kidney disease with stage 1 through stage 4 chronic kidney disease, or unspecified chronic kidney disease; E11.22 Type 2 diabetes mellitus with diabetic chronic kidney disease; I48.91 Unspecified atrial fibrillation; E78.5 Hyperlipidemia, unspecified; D69.6 Thrombocytopenia, unspecified; N40.0 Benign prostatic hyperplasia without lower urinary tract symptoms; R31.9 Hematuria, unspecified; E87.5 Hyperkalemia; E83.39 Other disorders of phosphorus metabolism; D64.9 Anemia, unspecified
CPT/HCPCS: 0241U-QW; 36415; 36430; 36600; 70450-TC; 71045-TC-FY; 76604; 76775-TC; 76937; 80048; 80053; 81003; 82247; 82272; 82533; 82542; 82607; 82746; 82803; 82962; 83010; 83605; 83615; 83735; 83880; 84100; 84132; 84439; 84443; 84484; 84550; 85025; 85027; 85379; 85384; 85610; 85730; 86022; 86140; 86705; 86803; 86850; 86900; 86901; 86922; 87040; 87070; 87076; 87081; 87086; 87186; 87205; 87340; 87481; 87517; 93005; 93010; 93306-TC; 93308; 93970-TC; 94002; 94640; 99285-25; G0480; J0131; J0248; J0282; J1100; J1644; J3490; P9037; P9058